=== PATIENT | female | born 1970 | race Caucasian/White ===

== ENCOUNTER 2018-03-06 12:45 | Inpatient (IN) | payer OTHER ==
[~2018-03-06] VITALS: Ht 175.3 cm; Wt 87.7 kg
[2018-03-06 13:42] LABS: HEMATOCRIT 31.4 % (36.0-46.0); HEMOGLOBIN 11.4 G/DL (11.9-15.5); MCHC 36.3 G/DL (30.0-36.0); MCV 96.3 FL (83-99); PLATELET COUNT 55 K/uL (156-360); RBC DIS.WIDTH-CV 14.4 % (11.8-14.6); RBC DIS.WIDTH-SD 50.2 % (39-53); RED BLOOD COUNT 3.26 M/uL (3.80-5.20); WHITE BLOOD COUNT 9.8 K/uL (4.1-10.2)
[2018-03-06 13:50] LABS: ALBUMIN 2.2 g/dL (3.2-4.8); CHLORIDE 94 mEq/L (99-109); POTASSIUM 3.3 mEq/L (3.7-5.4); SODIUM 126 mEq/L (136-147)
[2018-03-06 13:53] LABS: GLUCOSE 129 mg/dL (70-99); TOTAL PROTEIN 5.7 g/dL (6.4-8.3)
[2018-03-06 13:54] LABS: TOTAL BILIRUBIN 4.2 mg/dL (0.0-1.0)
[2018-03-06 13:56] LABS: ALKALINE PHOSPHATASE 319 IU/L (3-129); CREATININE 0.7 mg/dL (0.6-1.3)
[2018-03-06 13:57] LABS: UREA NITROGEN (BUN) 7 mg/dL (9-23)
[2018-03-06 13:58] LABS: AST (GOT) 70 IU/L (2-34); GFR ESTIMATE (CALCULATED) > 59 mL/min/
[2018-03-06 13:59] LABS: ALT (GPT) 36 IU/L (3-49)
[2018-03-06 14:05] LABS: QUANTITATIVE HCG < 4.0 MIU/ML
[2018-03-06] MEDS ORDERED: CORGARD20 MG PO ×2 (16:33→16:34)
[2018-03-06] MEDS ORDERED: GENERLAC10 GM/15 M PO (16:36)
[2018-03-06] MEDS ORDERED: ALDACTONE25 MG PO (16:38)
[2018-03-06] MEDS ORDERED: LASIX20 MG PO (16:42)
[2018-03-06 17:42] VITALS: BP 92/50
[2018-03-06 22:35] VITALS: BP 95/46
[2018-03-06 23:28] LABS: APPEARANCE CLOUDY ((CLEAR)); BILIRUBIN NEGATIVE; BLOOD SMALL; COLOR AMBER ((YELLOW)); GLUCOSE (STRIP) NEGATIVE; KETONES NEGATIVE; LEUKOCYTES LARGE; NITRITE NEGATIVE; PROTEIN (STRIP) 30; SPECIFIC GRAVITY 1.018 (1.000-1.030)
[2018-03-06 23:33] LABS: BACTERIA NONE SEEN /HPF; EPITHELIAL CELLS 3+ /HPF; MUCUS NONE SEEN /LPF; UCUL ADDED? YES; WHITE BLOOD CELLS TNTC /HPF (0-5)
[2018-03-07 03:31] VITALS: BP 90/44
[2018-03-07 05:36] LABS: HEMOGLOBIN 10.4 G/DL (11.9-15.5); MCH 33.5 PG (29.0-34.0); MCHC 34.7 G/DL (30.0-36.0); MCV 96.8 FL (83-99); RBC DIS.WIDTH-CV 14.6 % (11.8-14.6); RBC DIS.WIDTH-SD 51.2 % (39-53)
[2018-03-07 06:07] LABS: ALBUMIN 1.9 G/DL (3.2-4.8); ALKALINE PHOSPHATASE 222 IU/L (3-129); ALT (GPT) 25 IU/L (3-49); AST (GOT) 55 IU/L (2-34); CHLORIDE 96 MEQ/L (99-109); CREATININE 0.6 MG/DL (0.6-1.3); GFR ESTIMATE (CALCULATED) > 59 mL/min/; POTASSIUM 3.3 MEQ/L (3.7-5.4); SODIUM 125 MEQ/L (136-147); TOTAL BILIRUBIN 4.2 MG/DL (0.0-1.0); TOTAL PROTEIN 4.9 G/DL (6.4-8.3); UREA NITROGEN (BUN) 9 mg/dL (9-23)
[2018-03-07 06:11] LABS: GLUCOSE 79 mg/dL (70-99)
[2018-03-07 06:16] LABS: IMM.PLATELET FRACTION 4.8 (1-7); PLAT.SUFFICIENCY VERY DECREASED; PLATELET COUNT 51 K/uL (156-360)
[2018-03-07 07:17] VITALS: BP 92/50
[2018-03-07 11:01] VITALS: BP 108/54
[2018-03-07 15:22] VITALS: BP 104/53
[2018-03-07 19:44] VITALS: BP 105/58
[2018-03-07 23:47] VITALS: BP 115/65
[2018-03-08 03:52] VITALS: BP 114/65
[2018-03-08 05:50] LABS: BASOPHIL (%) 0.5 % (0-1); EOSINOPHIL (%) 1.8 % (0-5); EOSINOPHIL COUNT 0.1 K/uL (0-0.3); HEMOGLOBIN 9.2 G/DL (11.9-15.5); IMMATURE GRANULOCYTE (%) 0.9 % (0.0-0.7); LYMPHOCYTE (%) 25.1 % (15-42); LYMPHOCYTE COUNT 1.6 K/uL (1.0-2.8); MCH 33.2 PG (29.0-34.0); MCHC 34.1 G/DL (30.0-36.0); MCV 97.5 FL (83-99); MONOCYTE (%) 10.6 % (3-12); MONOCYTE COUNT 0.7 K/uL (0-0.8); NEUTROPHIL (%) 61.1 % (45-76); PLATELET COUNT 53 K/uL (156-360); RBC DIS.WIDTH-CV 14.6 % (11.8-14.6); RBC DIS.WIDTH-SD 52.6 % (39-53); RED BLOOD COUNT 2.77 M/uL (3.80-5.20); WHITE BLOOD COUNT 6.5 K/uL (4.1-10.2)
[2018-03-08 06:29] LABS: ALBUMIN 1.8 G/DL (3.2-4.8); ALKALINE PHOSPHATASE 213 IU/L (3-129); ALT (GPT) 23 IU/L (3-49); AST (GOT) 54 IU/L (2-34); CHLORIDE 100 MEQ/L (99-109); CREATININE 0.5 MG/DL (0.6-1.3); GFR ESTIMATE (CALCULATED) > 59 mL/min/; MAGNESIUM 1.5 mg/dl (1.3-2.7); PHOSPHORUS 1.9 mg/dL (2.5-4.9); POTASSIUM 3.2 MEQ/L (3.7-5.4); SODIUM 130 MEQ/L (136-147); TOTAL PROTEIN 4.7 G/DL (6.4-8.3); UREA NITROGEN (BUN) 8 mg/dL (9-23)
[2018-03-08 06:33] LABS: GLUCOSE 113 mg/dL (70-99); TOTAL BILIRUBIN 3.2 MG/DL (0.0-1.0)
[2018-03-08 08:22] LABS: URIC ACID 3.7 mg/dL (3.1-9.2)
[2018-03-08 08:58] VITALS: BP 123/64
[2018-03-08 12:40] LABS: HEPATITIS B SURFACE ANTIGEN Nonreactive; HEPATITIS C ANTIBODY Nonreactive
[2018-03-08 12:41] LABS: ANTI-HEPATITIS A VIRUS (IGM) Nonreactive
[2018-03-08 12:42] LABS: ANTI-HEPATITIS B CORE (IGM) Nonreactive
[2018-03-08 12:44] VITALS: BP 105/62
[2018-03-08 12:44] LABS: HEMATOCRIT 30.1 % (36.0-46.0); HEMOGLOBIN 10.6 G/DL (11.9-15.5); MCV 97.4 FL (83-99)
[2018-03-08 16:54] VITALS: BP 118/62
[2018-03-08 19:45] VITALS: BP 113/54
[2018-03-09 00:52] VITALS: BP 103/62
[2018-03-09 04:17] VITALS: BP 111/58
[2018-03-09 06:21] LABS: BASOPHIL (%) 1.1 % (0-1); BASOPHIL COUNT 0.1 K/uL (0-0.1); EOSINOPHIL (%) 4.2 % (0-5); EOSINOPHIL COUNT 0.2 K/uL (0-0.3); HEMATOCRIT 26.9 % (36.0-46.0); HEMOGLOBIN 9.3 G/DL (11.9-15.5); IMMATURE GRANULOCYTE (%) 1.3 % (0.0-0.7); LYMPHOCYTE (%) 34.4 % (15-42); LYMPHOCYTE COUNT 1.6 K/uL (1.0-2.8); MCH 33.8 PG (29.0-34.0); MCHC 34.6 G/DL (30.0-36.0); MCV 97.8 FL (83-99); MONOCYTE (%) 11.2 % (3-12); MONOCYTE COUNT 0.5 K/uL (0-0.8); NEUTROPHIL (%) 47.8 % (45-76); NEUTROPHIL COUNT 2.2 K/uL (1.8-6.4); PLATELET COUNT 58 K/uL (156-360); RBC DIS.WIDTH-CV 14.6 % (11.8-14.6); RBC DIS.WIDTH-SD 52.2 % (39-53); RED BLOOD COUNT 2.75 M/uL (3.80-5.20); WHITE BLOOD COUNT 4.6 K/uL (4.1-10.2)
[2018-03-09 06:51] LABS: CHLORIDE 102 MEQ/L (99-109); CREATININE 0.4 MG/DL (0.6-1.3); GFR ESTIMATE (CALCULATED) > 59 mL/min/; GLUCOSE 110 mg/dL (70-99); MAGNESIUM 1.5 mg/dl (1.3-2.7); PHOSPHORUS 2.2 mg/dL (2.5-4.9); POTASSIUM 3.2 MEQ/L (3.7-5.4); SODIUM 134 MEQ/L (136-147); UREA NITROGEN (BUN) 5 mg/dL (9-23)
[2018-03-09 07:27] VITALS: BP 115/78
[2018-03-09] MEDS ORDERED: CEPHALEXIN500 MG PO (11:15)
[2018-03-09] MEDS ORDERED: FUROSEMIDE20 MG PO (11:15)
[2018-03-09] MEDS ORDERED: METRONIDAZOLE500 MG PO (11:15)
[2018-03-09] MEDS ORDERED: K-DUR20 MEQ PO (11:15)
== END 2018-03-09 14:10 | disposition home or self-care (01) | DRG 603 ==
LOC: EME 12:45 → EDOF 15:58 → 5SOUTH 15:58 → ENRESERV 16:12 → 5SOUTH 17:23
PROVIDERS: Internal Medicine Nephrology; Physician Assistant Medical; Student in an Organized Health Care Education/Training Program
DX: L03.317 Cellulitis of buttock (principal); E87.1 Hypo-osmolality and hyponatremia; E83.51 Hypocalcemia; E88.09 Other disorders of plasma-protein metabolism, not elsewhere classified; D69.6 Thrombocytopenia, unspecified; E83.39 Other disorders of phosphorus metabolism; K74.60 Unspecified cirrhosis of liver; T50.0X5A Adverse effect of mineralocorticoids and their antagonists, initial encounter; E87.6 Hypokalemia; D64.9 Anemia, unspecified; R16.1 Splenomegaly, not elsewhere classified; R82.90 Unspecified abnormal findings in urine; F17.210 Nicotine dependence, cigarettes, uncomplicated; Z91.81 History of falling
CPT/HCPCS: 71046; 72192; 76705; 80048; 80053; 80074; 81003; 82533 91; 83605; 83735; 83935; 84100; 84300; 84550; 84702; 85014; 85018; 85025; 85027; 87040; 87077; 87086; 99281; 99285; J0690; J0696; J7030